=== PATIENT | female | born 1960 | race Caucasian/White ===

== ENCOUNTER 2022-01-12 06:55 | Observation (INO) ==
[~2022-01-12 06:55] MED LIST: Buffered Lidocaine 1% SYRIN 1 ml INTRADERM ONE; Famotidine IV 10 MG/ML 2 ml VIAL (20 mg) IV ONE; Lactated Ringers 1000 ml BAG 1,000 ML IV SCH
[2022-01-12] MEDS ORDERED: Lidocaine 1% w EPI 1:100,000 MDV 20 ML VIAL ONE (07:08)
[2022-01-12] MEDS ORDERED: Vancomycin 1,000 MG VIAL ONE (07:08)
[2022-01-12] MEDS ORDERED: ceFAZolin 2 GM in NS PREMIX 2 GM/100 ML BAG IVPB ONE (07:09)
[2022-01-12] MEDS ORDERED: Bupivacaine 0.5% SDV PF 30ML VIAL ONE (07:09)
[2022-01-12] MEDS ORDERED: Famotidine IV 10 MG/ML 2 ml VIAL (20 mg) ONE (07:09)
[2022-01-12 07:45] LABS: Rapid COVID-19 Molecular Undetected (Undetected)
[2022-01-12] MEDS ORDERED: Lidocaine 1% w EPI 1:200,000 SDV 30 ML VIAL ONE (08:15)
[2022-01-12] MEDS ORDERED: Midazolam 2 mg/2 ml VIAL 1 mg/ml 2 ml VIAL (2 mg) ONE (08:24)
[2022-01-12] MEDS ORDERED: fentaNYL 100 mcg/2 ml 50 MCG/ML VIAL ONE ×2 (08:25→10:12)
[2022-01-12] MEDS ORDERED: ROPIVACAINE 5 MG/ML 30 ML BTL (0.5%) ONE (08:27)
[2022-01-12] MEDS ORDERED: Lidocaine 2% PF 5 ML VIAL ONE (09:06)
[2022-01-12] MEDS ORDERED: Propofol 10 MG/ML 20 ML BTL ONE (09:06)
[2022-01-12] MEDS ORDERED: Prochlorperazine 5 mg/ml 2 ml VIAL (10 mg) IV PRN (09:19)
[2022-01-12] MEDS ORDERED: Morphine 4 MG/ML VIAL (1 ml) IV PRN (09:19)
[2022-01-12] MEDS ORDERED: Naloxone 0.4 mg VIAL 0.4 mg/ml 1 ml VIAL IV PRN (09:19)
[2022-01-12] MEDS ORDERED: fentaNYL 100 mcg/2 ml 50 MCG/ML VIAL IV PRN (09:19)
[2022-01-12] MEDS ORDERED: Ondansetron 4 mg VIAL 2 MG/ML 2 ml VIAL ONE (10:59)
[2022-01-12] MEDS ORDERED: HYDROmorphone 0.5 MG/0.5 ML SYRINGE ONE (11:48)
[2022-01-12] MEDS ORDERED: Lactulose 30 ml UDC PO PRN (11:58)
[2022-01-12] MEDS ORDERED: Ondansetron ODT 4 mg TAB 4 MG TAB PO PRN (11:58)
[2022-01-12] MEDS ORDERED: Ondansetron 4 mg VIAL 2 MG/ML 2 ml VIAL IV PRN (11:58)
[2022-01-12] MEDS ORDERED: Morphine 2 MG/ML SYRINGE IV PRN (11:58)
[2022-01-12] MEDS ORDERED: Magnesium Hydroxide LIQ 30 ML UDC PO PRN (11:58)
[2022-01-12] MEDS ORDERED: Lactated Ringers 1000 ml BAG 1,000 ML IV SCH (12:00)
[2022-01-12] MEDS ORDERED: Albuterol HFA INHALER 8 gm MDI INH PRN ×2 (12:05→13:56)
[2022-01-12] MEDS: ceFAZolin 1 GM ADVAN 1 GM in NS 0.9% 50 ML 50 ML IVPB SCH (18:39)
[2022-01-12] MEDS: Magnesium Hydroxide LIQ 30 ML UDC PO SCH (20:05)
[2022-01-13] MEDS: ceFAZolin 1 GM ADVAN 1 GM in NS 0.9% 50 ML 50 ML IVPB SCH ×2 (02:39→10:24)
[2022-01-13 05:30] LABS: Hematocrit 37 % (35-47); Hemoglobin 12.6 g/dL (12.0-16.0); Mean Platelet Volume 8.1 fL (7.4-10.4); Platelet Count 172 10^3/uL (150-450)
[2022-01-13 05:59] LABS: Calcium 8.1 mg/dL (8.6-10.3); Potassium 4.6 mmol/L (3.5-5.0); eGFR CKD-EPI 101.8 (>60)
[2022-01-13] MEDS ORDERED: Aspirin EC 81 mg TAB.EC (enteric coated) PO SCH (09:00)
[2022-01-13] MEDS ORDERED: Vitamin THERAPEUTIC TAB PO SCH (09:00)
[2022-01-13 10:14] VITALS: BP 116/66
[2022-01-13] MEDS: Magnesium Hydroxide LIQ 30 ML UDC PO SCH (10:23)
== END 2022-01-13 14:43 | disposition home or self-care (01) ==
LOC: SSU 06:55 → OR 06:55
PROVIDERS: ADMIT Orthopaedic Surgery; ATTEND Orthopaedic Surgery